=== PATIENT | male | born 1945 | race Caucasian/White ===

== ENCOUNTER 2016-06-08 08:46 | Outpatient (CLI) ==
[2015-08-17 10:16] VITALS: BMI 34.0
--- NOTE | 2016-06-08 09:25 | CT ---
EXAM: CT head without contrast HISTORY: Near-syncope COMPARISON: None TECHNIQUE: Serial axial images of the brain were obtained from the skull base to the vertex without IV contrast. FINDINGS: The ventricles, cisterns and sulci demonstrate mild generalized volume loss. The malloy-wh ite matter junction is maintained. There is minimal low attenuation in the periventricular white ma tter.No midline shift or mass is identified. There is no abnormal intra or extra-axial fluid collec tion. The paranasal sinuses demonstrates scattered mucosal thickening throughout the paranasal sinu ses. The mastoid air cells are clear. The osseous calvarium is intact. IMPRESSION: 1. No acute intracranial abnormality or hemorrhage is identified. If further evaluation is clinica lly indicated, MRI may be obtained. 2. Mild generalized volume loss and scattered microangiopathy. 3. Mild scattered paranasal sinus disease.
== END 2016-06-08 08:47 | disposition home or self-care (01) ==
LOC: RAD 08:46
PROVIDERS: ATTEND Family Medicine
DX: G45.9 Transient cerebral ischemic attack, unspecified (principal)
CPT/HCPCS: 93224

== ENCOUNTER 2016-06-09 13:06 | Outpatient (CLI) ==
[2015-08-17 10:16] VITALS: BMI 34.0
--- NOTE | 2016-06-09 13:47 | DEXA ---
EXAM: DEXA scan. HISTORY: Osteoporosis. COMPARISON: None available. TECHNIQUE: [employer] [id number]. DEXA scan lumbar spine performed. Quality of the study is good. BMD is 1.006 grams per square cent imeter. T-score -1.8. Z-score -2.0. DEXA scan hips performed. Quality of the study is good. BMD 0.995 grams per square centimeter. T-s core -0.7. Z-score -0.5. IMPRESSION: According to the World Health Organization classification, hip bone mineral density is normal. Lumb ar spine bone mineral density demonstrates osteopenia, with increased fracture risk. Ten-year major osteoporotic fracture risk is 6.8%. Ten-year hip fracture risk is 3.3%.
--- NOTE | 2016-06-14 10:57 | HOLTER ---
PATIENT INFORMATION AND COMMENTS Indications: SYNCOPE __ Patient Medications: CORICIDIN, FLUTICASONE, LOSARTAN, METOPROLOL, OMEPRAZOLE, PATANASE, SIMVASTATIN, TAMSULOSIN __ Pre-procedure Summary: Protocol: Standard Heart Rate Started: 06/09/16 1345 Minimum: 56 BPM Weight: 278 LBS Ended: 06/10/16 1345 Maximum: 156 BPM Height: 72" Duration: 24 HOURS Average: 84 _ INTERPRETATIONS/OBSERVATIONS: 1. BASIC RHYTHM: SINUS, RATE 55/MINUTE TO 140/MINUTE, AVERAGE 85/MINUTE 2. PAC'S --INFREQUENT--LESS THAN 0.5% OF BEATS SCANNED, RARE PVC'S 3. TWO EPISODES OF SVT NOTED, ONE LASTING 3 SECONDS AND THE OTHER ONE LASTING [address]-T WAVE CHANGES FROM BASELINE 5. NO CORRELATION WITH ACTIVITY LOG MTDD
== END 2016-06-09 13:07 | disposition home or self-care (01) ==
LOC: RAD 13:06
PROVIDERS: ATTEND Family Medicine
DX: M81.0 Age-related osteoporosis without current pathological fracture (principal); F10.10 Alcohol abuse, uncomplicated
CPT/HCPCS: 93224

== ENCOUNTER 2017-03-01 12:59 | Outpatient (CLI) ==
[2015-08-17 10:16] VITALS: BMI 34.0
== END 2017-03-01 13:00 | disposition home or self-care (01) ==
LOC: CAR 12:59
PROVIDERS: ATTEND Family Medicine
DX: J96.91 Respiratory failure, unspecified with hypoxia (principal); R06.02 Shortness of breath
CPT/HCPCS: 94761